=== PATIENT | female | born 1990 | race Caucasian/White ===

== ENCOUNTER 2019-08-16 12:38 | Emergency (ER) | payer SELFPAY ==
[~2019-08-16] VITALS: Ht 177.8 cm; Wt 70.0 kg
[2019-08-16 13:12] VITALS: BP 145/92
== END 2019-08-16 14:51 | disposition left against medical advice (07) ==
LOC: ER 13:37
DX: M79.604 Pain in right leg (principal); Z53.21 Procedure and treatment not carried out due to patient leaving prior to being seen by health care provider

== ENCOUNTER 2019-10-24 23:26 | Emergency (ER) | payer SELFPAY ==
[~2019-10-24] VITALS: Ht 177.8 cm; Wt 70.0 kg
[2019-10-25] MEDS ORDERED: SODIUM CHLORIDE 0.9% 1,000 ML IV ONE (03:36)
[2019-10-25] MEDS ORDERED: CEFTRIAXONE 1 G PREMIX 50 ML IV ONE (03:45)
[2019-10-25 04:17] LABS: BASOPHILS % 0.9 % (0.0-2.0); EOSINOPHILS % 1.3 % (0.0-5.0); HEMATOCRIT. 31.8 % (36.0-48.0); HEMOGLOBIN. 10.5 g/dL (12.0-16.0); LYMPHOCYTES % 16.2 % (20.0-50.0); MEAN CORPUSCULAR HEMOGLOBIN 30.5 pg (28.0-32.0); MEAN CORPUSCULAR VOLUME 91.9 fL (81.0-99.0); MONOCYTES % 11.3 % (2.0-8.0); NEUTROPHILS % 70.3 % (40.0-76.0); PLATELET 437 x1000/uL (130-400); RED BLOOD CELL COUNT 3.46 mill/uL (4.2-5.4); RED CELL DISTRIBUTION WIDTH 13.9 % (11.6-14.6)
[2019-10-25 04:19] LABS: CHLORIDE 107 mEq/L (98-107)
[2019-10-25 05:00] VITALS: BP 127/87
== END 2019-10-25 05:35 | disposition home or self-care (01) ==
LOC: ER 23:26
DX: L03.115 Cellulitis of right lower limb (principal); F12.10 Cannabis abuse, uncomplicated; F17.200 Nicotine dependence, unspecified, uncomplicated; Z98.890 Other specified postprocedural states
CPT/HCPCS: 36415; 80053; 83605; 85025; 87040; 96365; 99283; J0696; J7030; Z7610

== ENCOUNTER 2020-08-19 17:15 | Emergency (ER) | payer SELFPAY ==
[~2020-08-19] VITALS: Ht 177.8 cm; Wt 66.0 kg
[2020-08-19 17:20] VITALS: BP 143/95
[2020-08-19] MEDS ORDERED: IBUPROFEN 600MG TABLET PO ONE (18:45)
== END 2020-08-19 20:01 | disposition home or self-care (01) ==
LOC: ER 17:15
DX: N94.10 Unspecified dyspareunia (principal); D25.9 Leiomyoma of uterus, unspecified; F12.10 Cannabis abuse, uncomplicated
CPT/HCPCS: 76830; 76856; 99284; Z7610

== ENCOUNTER 2021-02-01 03:59 | Emergency (ER) | payer SELFPAY ==
[~2021-02-01] VITALS: Ht 177.8 cm; Wt 72.0 kg
[2021-02-01] MEDS ORDERED: LIDOCAINE HCL/PF 1% 10 MG/ML 5ML VIAL IJ ONE (04:15)
[2021-02-01] MEDS ORDERED: ACETAMINOPHEN WITH CODEINE 300/30MG TABLET PO ONE (04:15)
[2021-02-01] MEDS ORDERED: BACITRACIN ZINC OINT UDPKT TOP ONE (04:15)
[2021-02-01] MEDS ORDERED: TETANUS, DIPHTHERIA, PERTUSSIS VAC/PF 0.5ML (>7YR OLD) IM ONE (04:15)
[2021-02-01 05:45] VITALS: BP 107/77
== END 2021-02-01 06:15 | disposition home or self-care (01) ==
LOC: ER 03:59
DX: S91.119A Laceration without foreign body of unspecified toe without damage to nail, initial encounter (principal); F12.10 Cannabis abuse, uncomplicated; Y93.01 Activity, walking, marching and hiking; Y92.89 Other specified places as the place of occurrence of the external cause; Y99.8 Other external cause status
CPT/HCPCS: 12001; 73630; 90471; 90715; 99283; A4217; J3490; Z7610

== ENCOUNTER 2021-02-13 10:50 | Emergency (ER) | payer SELFPAY ==
[~2021-02-13] VITALS: Ht 177.8 cm; Wt 68.0 kg
[2021-02-13 10:58] VITALS: BP 133/86
== END 2021-02-13 11:43 | disposition home or self-care (01) ==
LOC: ER 10:50
DX: Z48.02 Encounter for removal of sutures (principal)
CPT/HCPCS: 99281; Z7610

== ENCOUNTER 2022-03-27 18:22 | Emergency (ER) | payer SELFPAY ==
[~2022-03-27] VITALS: Ht 172.7 cm; Wt 81.0 kg
[2022-03-27 18:31] VITALS: BP 168/95
[2022-03-27] MEDS ORDERED: IBUP-2028 MT (20:42)
[2022-03-27] MEDS ORDERED: CLIN-116 MT (20:42)
== END 2022-03-27 21:40 | disposition home or self-care (01) ==
LOC: ER 18:22
DX: K04.7 Periapical abscess without sinus (principal)
CPT/HCPCS: 81025; 99282; 99283

== ENCOUNTER 2023-12-15 03:21 | Emergency (ER) | payer SELFPAY ==
[~2023-12-15] VITALS: Ht 177.8 cm; Wt 75.0 kg
[~2023-12-15 03:21] MED LIST: CLIN-116 MT; IBUP-2028 MT
[2023-12-15 03:24] VITALS: BP 162/60; PULSE 130; RESP 18; TEMP 98.3; O2SAT 97
[2023-12-15 05:55] LABS: BASOPHILS % 0.6 % (0.0-2.0); EOSINOPHILS % 0.5 % (0.0-5.0); HEMATOCRIT. 37.3 % (36.0-48.0); HEMOGLOBIN. 12.4 g/dL (12.0-16.0); LYMPHOCYTES % 14.6 % (20.0-50.0); MEAN CORPUSCULAR HEMOGLOBIN 31.7 pg (28.0-32.0); MEAN CORPUSCULAR HGB CONC 33.2 g/dL (31.0-37.0); MEAN CORPUSCULAR VOLUME 95.5 fL (81.0-99.0); MEAN PLATELET VOLUME 6.3 fl (7.4-10.4); MONOCYTES % 7.1 % (2.0-8.0); NEUTROPHILS % 77.2 % (40.0-76.0); PLATELET 379 x1000/uL (130-400); RED BLOOD CELL COUNT 3.91 mill/uL (4.2-5.4); RED CELL DISTRIBUTION WIDTH 12.9 % (11.6-14.6)
[2023-12-15 06:03] LABS: HCG SCREEN NEGATIVE
[2023-12-15 06:10] LABS: ALANINE AMINOTRANSFERASE 11 IU/L (10-49); ALBUMIN 4.7 g/dL (3.2-4.8); ASPARTATE AMINOTRANSFERASE 15 IU/L (<34); BILIRUBIN TOTAL 0.4 mg/dL (0.1-1.0); CALCIUM 8.8 mg/dL (8.7-10.4); CARBON DIOXIDE 29 mEq/L (21-32); CHLORIDE 105 mEq/L (98-107); GLUCOSE 102 mg/dL (70-105); POTASSIUM 3.3 mEq/L (3.5-5.1); PROTEIN TOTAL 7.8 g/dL (6.0-8.3); SODIUM 137 mEq/L (136-145); UREA NITROGEN BLOOD 14 mg/dL (9-23)
[2023-12-15 06:40] LABS: TROPONIN I HIGH SENSITIVITY < 4 ng/L (3.0-34)
== END 2023-12-15 09:57 | disposition home or self-care (01) ==
LOC: ER 03:25
DX: R07.9 Chest pain, unspecified (principal); F12.90 Cannabis use, unspecified, uncomplicated
CPT/HCPCS: 36415; 71045; 80053; 84484; 84703; 85025; 85379; 93005; 99285